=== PATIENT | female | born 1945 | race Caucasian/White ===

== ENCOUNTER 2017-07-15 05:36 | Day surgery (SDC) | payer MEDICARE ==
[2017-07-15] MEDS ORDERED: LIDOCAINE 1% PF 2 ML AMP INJ ONE (05:37)
[2017-07-15] MEDS ORDERED: TROP 1%/CYCLOPEN 1%/PHENYL 2% DROPS ONE (06:11)
[2017-07-15] MEDS: TOBRAMYCIN SULF 0.3 % OPHT SOL 1 DROP LEFT_EYE ONE ×2 (11:12→12:10)
[2017-07-15] MEDS: PROPARACAINE 0.5% OPHTH SOL 15 ML BTTL ONE ×2 (11:12→11:51)
[2017-07-15] MEDS ORDERED: MIDAZOLAM INJ 2 MG/2 ML VIAL ONE (11:46)
[2017-07-15] MEDS ORDERED: TOBRAMYCIN SULF 0.3 % OPHT SOL 1 DROP LEFT_EYE ONE (12:02)
[2017-07-15] MEDS ORDERED: DEXAMETHASONE 0.1% OPHTH SOL 1 DROP LEFT_EYE ONE ×2 (12:02→12:10)
[2017-07-15] MEDS ORDERED: BRIMONIDINE 0.2% OPHTH DROPS LEFT_EYE ONE ×2 (12:03→12:10)
[2017-07-15 15:25] VITALS: BP 112/59; TEMP 97.5; O2SAT 98
== END 2017-07-15 12:54 | disposition home or self-care (01) ==
LOC: AMB 05:36
PROVIDERS: ATTEND Ophthalmology
DX: H25.12 Age-related nuclear cataract, left eye (principal); I10 Essential (primary) hypertension; K21.9 Gastro-esophageal reflux disease without esophagitis; E66.9 Obesity, unspecified; Z79.899 Other long term (current) drug therapy
CPT/HCPCS: 00142; 66984; J2250

== ENCOUNTER 2017-07-29 05:30 | Day surgery (SDC) | payer MEDICARE ==
[2017-07-29] MEDS ORDERED: PROPARACAINE 0.5% OPHTH SOL 15 ML BTTL ONE (05:57)
[2017-07-29] MEDS ORDERED: TROP 1%/CYCLOPEN 1%/PHENYL 2% DROPS ONE (05:57)
[2017-07-29] MEDS ORDERED: MIDAZOLAM INJ 2 MG/2 ML VIAL ONE (13:10)
[2017-07-29] MEDS ORDERED: LIDOCAINE 1% PF 2 ML AMP INJ ONE (13:25)
[2017-07-29] MEDS ORDERED: DEXAMETHASONE 0.1% OPHTH SOL 1 DROP RIGHT_EYE ONE ×2 (13:32→13:39)
[2017-07-29] MEDS ORDERED: TOBRAMYCIN SULF 0.3 % OPHT SOL 1 DROP RIGHT_EYE ONE ×2 (13:33→13:39)
[2017-07-29] MEDS ORDERED: BRIMONIDINE 0.2% OPHTH DROPS RIGHT_EYE ONE ×2 (13:33→13:39)
== END 2017-07-29 14:17 | disposition home or self-care (01) ==
LOC: AMB 05:30
PROVIDERS: ATTEND Ophthalmology
DX: H25.11 Age-related nuclear cataract, right eye (principal); I10 Essential (primary) hypertension; Z79.899 Other long term (current) drug therapy
CPT/HCPCS: 00142; 66984; J2250